=== PATIENT | male | born 1955 | race Caucasian/White ===

== ENCOUNTER 2019-02-05 15:07 | Emergency (ER) | payer OTHER, SELFPAY ==
[2019-02-05 15:16] VITALS: BP 154/89; PULSE 86; RESP 20; O2SAT 99
--- NOTE | 2019-02-05 15:22 | DI.RAD.S_ITS ---
PROCEDURE: XR CHEST 1V INDICATIONS: syncope TECHNIQUE: One view of the chest was acquired. COMPARISON: None. FINDINGS: Surgical changes and devices: None. Lungs and pleura: Lungs are clear. No pleural effusions or pneumothorax. Mediastinum: Mediastinal contours appear normal. Heart size is normal. Bones and chest wall: No suspicious bony lesions. Overlying soft tissues appear unremarkable. IMPRESSION: No acute cardiopulmonary disease process. Dictated by: Kizzy Schroeder MD, PhD on 02/05/2019 at 16:00 Approved by: Kizzy Schroeder MD, PhD on 02/05/2019 at 16:00
[2019-02-05 15:32] LABS: Add Manual Diff / Slide Review NO; Basophils Absolute Auto 0 /uL (0-100); Basophils Percent Auto 0.3 % (0-2); Eosinophils Absolute Auto 0 /uL (0-450); Eosinophils Percent Auto 0.2 % (2-4); Hematocrit 42.7 % (41-53); Hemoglobin 14.5 g/dL (13.5-17.5); Lymphocytes Absolute Auto 1500 /uL (1100-4500); Lymphocytes Percent Auto 23.8 % (25-40); Mean Corpuscular HGB Conc 34.1 % (30-36); Mean Corpuscular Hemoglobin 32.2 PG (26-34); Mean Corpuscular Volume 94.6 fL (80-100); Monocytes Absolute Auto 800 /uL (0-900); Monocytes Percent Auto 12.7 % (3-14); Neutrophils Absolute Auto 4000 /uL (1500-7000); Platelet Count 174 X10^3/uL (150-400); Red Blood Cell Count 4.51 X10^6/uL (4.5-5.9); Red Cell Distribution Width 14.1 % (11.6-14.8); White Blood Cell Count 6.4 X10^3/uL (4.5-11.0)
[2019-02-05 15:39] VITALS: BP 136/83; PULSE 84; RESP 13; O2SAT 99
--- NOTE | 2019-02-05 15:39 | ED_ITS ---
HPI - Syncope <HAO Tim - Last Filed: 02/05/19 18:31> General Chief Complaint: Syncope Stated Complaint: check to see if he had a heart attack Time Seen by Provider: 02/05/19 15:10 Source: patient and family Mode of arrival: Ambulatory Limitations: no limitations History of Present Illness HPI narrative: The patient is a 63-year-old male nonsmoker who presents with his for chief complaint of syncope 15 hours ago. He states he was in bed sleeping, got up to use the bathroom, and then got very pale sweaty and weak after. He states he lowered himself to the floor, does not think he passed out. He denies hitting his head, any neck or back pain. He denies any chest pain shortness of breath. He states that he has felt like he has had the flu, with muscle aches chills low-grade fevers and congestion. He does have a cough. He denies any shortness of breath. 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 He denies any abdominal pain. He denies any head pain or neck pain. Related Data Home Medications Medication Instructions Recorded Confirmed valsartan 40 mg PO DAILY 02/05/19 02/05/19 Allergies Allergy/AdvReac Type Severity Reaction Status Date / Time No Known Drug Allergies Allergy Verified 02/05/19 15:28 Review of Systems <HAO Tim - Last Filed: 02/05/19 18:31> Review of Systems Narrative: GENERAL: See HPI HEENT: Denies sinus pain, ear pain, sore throat, difficulty swallowing, dizziness. RESPIRATORY: Denies dyspnea, cough, wheezing, hemoptysis, sputum. CARDIOVASCULAR: See HPI GASTROINTESTINAL: See HPI : Denies dysuria, frequency, incontinence, hematuria, urinary retention. MUSCULOSKELETAL: denies weakness, joint pain, or bony pain SKIN: Denies rash, skin lesions, or other NEUROLOGIC: Denies weakness, headache, numbness, change in speech, confusion, seizures, incoordination. PSYCHIATRIC: No concerning psychosocial issues. 12 point review of systems is negative except for those stated above Patient History <JESUS Tim - Last Filed: 02/05/19 18:31> Medical History Hypertension (Acute) Exam <JESUS Tim - Last Filed: 02/05/19 18:31> Narrative Exam Narrative: GENERAL: This is a well-nourished, well-developed patient, in no acute distress HEAD: Atraumatic. Normocephalic. No temporal or scalp tenderness. EYES: Pupils equal round and reactive. Extraocular motions intact. No scleral icterus. No injection or drainage. ENT: Nose without bleeding, purulent drainage or septal hematoma. Throat without erythema, tonsillar hypertrophy or exudate. Uvula midline. Airway patent. NECK: Trachea midline. No JVD or lymphadenopathy. Supple, nontender, no meningeal signs. CARDIOVASCULAR: Regular rate and rhythm RESPIRATORY: Clear to auscultation. Breath sounds equal bilaterally. No wheezes, rales, or rhonchi. Occasional cough. No increased respiratory effort. No accessory muscle use. GASTROINTESTINAL: Abdomen soft, non-tender, nondistended. No hepato- splenomegaly, or palpable masses. No guarding. Active bowel sounds all quadrants EXTREMITIES: No clubbing, cyanosis, or edema. No joint tenderness, effusion, or edema noted. BACK: Nontender without deformity or crepitance. No flank tenderness. NEURO: AOx3. Interactive. Age appropriate. No gross cranial nerve deficit. Clear speech. SKIN: No rash or erythema visible skin Initial Vital Signs Initial Vital Signs: Vital Signs Pulse Rate 86 02/05/19 15:16 Respiratory Rate 20 02/05/19 15:16 Blood Pressure 154/89 H 02/05/19 15:16 Pulse Oximetry 99 02/05/19 15:16 <Yenny Spicer DO - Last Filed: 02/06/19 07:26> Initial Vital Signs Initial Vital Signs: Vital Signs Pulse Rate 86 02/05/19 15:16 Respiratory Rate 20 02/05/19 15:16 Blood Pressure 154/89 H 02/05/19 15:16 Pulse Oximetry 99 02/05/19 15:16 Scores <JESUS Tim - Last Filed: 02/05/19 18:31> GCS Bradford coma scale eye opening: Spontaneous Bradford coma scale verbal response: Orientated Carline coma scale motor response: Obey commands Carline coma scale total score: 15 Nexus Score for C-Spine Focal Neurologic deficit present: No Midline spinal tenderness present: No Altered level of conciousness present: No Intoxication present: No Distracting Injury Present: No Nexus Criteria for C-spine: 0 Course <HAO TimBC - Last Filed: 02/05/19 18:31> Orders Ordered: Discontinued Medications Sodium Chloride (Normal Saline 0.9%) 1,000 mls @ 1,000 mls/hr IV BOLUS ONE Stop: 02/05/19 16:36 Last Infusion: 02/05/19 16:41 Dose: 0 mls/hr Documented by: Admin: 02/05/19 15:45 Dose: 1,000 mls/hr Documented by: KEANU Sodium Chloride (Normal Saline 0.9%) 1,000 mls @ 1,000 mls/hr IV BOLUS ONE Stop: 02/05/19 17:18 Last Infusion: 02/05/19 17:47 Dose: 0 mls/hr Documented by: Admin: 02/05/19 16:41 Dose: 1,000 mls/hr Documented by: KEANU Vital Signs Vital signs: Vital Signs - 8 hr 02/05/19 15:16 02/05/19 15:39 02/05/19 16:15 Temperature Pulse Rate 86 84 87 Pulse Rate [Orthostatic Lying] Pulse Rate [Orthostatic Sitting] Pulse Rate [Orthostatic Standing] Respiratory Rate 20 13 20 Blood Pressure 154/89 H Blood Pressure [Orthostatic Lying] Blood Pressure [Orthostatic Sitting] Blood Pressure [Orthostatic Standing] Blood Pressure [Right Arm] 136/83 113/79 Pulse Oximetry 99 99 98 02/05/19 17:08 02/05/19 17:51 Temperature 98.5 F Pulse Rate 78 Pulse Rate [Orthostatic Lying] 75 Pulse Rate [Orthostatic Sitting] 79 Pulse Rate [Orthostatic Standing] 88 Respiratory Rate 18 Blood Pressure Blood Pressure [Orthostatic Lying] 125/68 Blood Pressure [Orthostatic Sitting] 143/78 H Blood Pressure [Orthostatic Standing] 127/78 Blood Pressure [Right Arm] Pulse Oximetry 98 <Yenny Spicer DO - Last Filed: 02/06/19 07:26> Orders Ordered: Discontinued Medications Sodium Chloride (Normal Saline 0.9%) 1,000 mls @ 1,000 mls/hr IV BOLUS ONE Stop: 02/05/19 16:36 Last Infusion: 02/05/19 16:41 Dose: 0 mls/hr Documented by: Admin: 02/05/19 15:45 Dose: 1,000 mls/hr Documented by: KEANU Sodium Chloride (Normal Saline 0.9%) 1,000 mls @ 1,000 mls/hr IV BOLUS ONE Stop: 02/05/19 17:18 Last Infusion: 02/05/19 17:47 Dose: 0 mls/hr Documented by: Admin: 02/05/19 16:41 Dose: 1,000 mls/hr Documented by: KEANU Vital Signs Vital signs: Vital Signs - 8 hr 02/05/19 15:16 02/05/19 15:39 02/05/19 16:15 Temperature Pulse Rate 86 84 87 Pulse Rate [Orthostatic Lying] Pulse Rate [Orthostatic Sitting] Pulse Rate [Orthostatic Standing] Respiratory Rate 20 13 20 Blood Pressure 154/89 H Blood Pressure [Orthostatic Lying] Blood Pressure [Orthostatic Sitting] Blood Pressure [Orthostatic Standing] Blood Pressure [Right Arm] 136/83 113/79 Pulse Oximetry 99 99 98 02/05/19 17:08 02/05/19 17:51 Temperature 98.5 F Pulse Rate 78 Pulse Rate [Orthostatic Lying] 75 Pulse Rate [Orthostatic Sitting] 79 Pulse Rate [Orthostatic Standing] 88 Respiratory Rate 18 Blood Pressure Blood Pressure [Orthostatic Lying] 125/68 Blood Pressure [Orthostatic Sitting] 143/78 H Blood Pressure [Orthostatic Standing] 127/78 Blood Pressure [Right Arm] Pulse Oximetry 98 MDM - Syncope <JESUS Tim - Last Filed: 02/05/19 18:31> Lab Data Result diagrams: 02/05/19 15:21 02/05/19 15:21 Labs: Lab Results 02/05/19 02/05/19 02/05/19 Range/Units 15:21 15:21 15:21 WBC 6.4 (4.5-11.0) X10^3/uL RBC 4.51 (4.5-5.9) X10^6/uL Hgb 14.5 (13.5-17.5) g/dL Hct 42.7 (41-53) % MCV 94.6 (80-100) fL MCH 32.2 (26-34) PG MCHC 34.1 (30-36) % RDW 14.1 (11.6-14.8) % Plt Count 174 (150-400) X10^3/uL Neut % (Auto) 63.0 (50-75) % Lymph % (Auto) 23.8 L (25-40) % [place] % (Auto) 12.7 (3-14) % Eos % (Auto) 0.2 L (2-4) % Baso % (Auto) 0.3 (0-2) % Neut # (Auto) 4000 (1233-4660) /uL Lymph # (Auto) 1500 (3071-8919) /uL [place] # (Auto) 800 (0-900) /uL Eos # (Auto) 0 (0-450) /uL Baso # (Auto) 0 (0-100) /uL Sodium 137 (137-145) mmol/L Potassium 3.8 (3.4-5.1) mmol/L Chloride 98 (98-107) mmol/L Carbon Dioxide 27 (22-32) mmol/L BUN 24 H (9-20) mg/dL Creatinine 1.40 H (0.66-1.25) mg/dL Estimated GFR 51.5 L (>60) mL/min BUN/Creatinine Ratio 17.1 (6-22) Glucose 97 (80-110) mg/dL Calcium 8.7 (8.4-10.2) mg/dL Magnesium 2.1 (1.6-2.3) mg/dL Total Bilirubin 0.5 (0.2-1.3) mg/dL AST 32 (17-59) IU/L ALT 15 (<50) IU/L Alkaline Phosphatase 55 (38-126) U/L Total Creatine Kinase 135 (55-170) U/L CK-MB (CK-2) 0.31 (<2.37) ng/mL CK-MB (CK-2) Rel Index 0.2 L (1.5-5.0) % Troponin I Cancelled < 0.012 Total Protein 7.8 (6.3-8.2) g/dL Albumin 4.4 (3.5-5.0) g/dL Globulin 3.4 (1.7-4.1) g/dL Albumin/Globulin Ratio 1.3 (1.0-2.8) Influenza A (RT-PCR) (NEGATIVE) Influenza B (RT-PCR) (NEGATIVE) 02/05/19 Range/Units 15:48 WBC (4.5-11.0) X10^3/uL RBC (4.5-5.9) X10^6/uL Hgb (13.5-17.5) g/dL Hct (41-53) % MCV (80-100) fL MCH (26-34) PG MCHC (30-36) % RDW (11.6-14.8) % Plt Count (150-400) X10^3/uL Neut % (Auto) (50-75) % Lymph % (Auto) (25-40) % [place] % (Auto) (3-14) % Eos % (Auto) (2-4) % Baso % (Auto) (0-2) % Neut # (Auto) (8107-5527) /uL Lymph # (Auto) (8165-7361) /uL [place] # (Auto) (0-900) /uL Eos # (Auto) (0-450) /uL Baso # (Auto) (0-100) /uL Sodium (137-145) mmol/L Potassium (3.4-5.1) mmol/L Chloride (98-107) mmol/L Carbon Dioxide (22-32) mmol/L BUN (9-20) mg/dL Creatinine (0.66-1.25) mg/dL Estimated GFR (>60) mL/min BUN/Creatinine Ratio (6-22) Glucose (80-110) mg/dL Calcium (8.4-10.2) mg/dL Magnesium (1.6-2.3) mg/dL Total Bilirubin (0.2-1.3) mg/dL AST (17-59) IU/L ALT (<50) IU/L Alkaline Phosphatase (38-126) U/L Total Creatine Kinase (55-170) U/L CK-MB (CK-2) (<2.37) ng/mL CK-MB (CK-2) Rel Index (1.5-5.0) % Troponin I Total Protein (6.3-8.2) g/dL Albumin (3.5-5.0) g/dL Globulin (1.7-4.1) g/dL Albumin/Globulin Ratio (1.0-2.8) Influenza A (RT-PCR) Flu a negative (NEGATIVE) Influenza B (RT-PCR) Flu b positive H (NEGATIVE) Urine Dip Bedside Urine Glucose Negative Bedside Urine Bilirubin - Negative Bedside Urine Ketone - Negative Urine Specific [place] 1.015 Bedside Urine Occult Blood - Negative Bedside Urine pH 6.0 Bedside Urine Protein - Negative Bedside Urine Urobilinogen - Negative Bedside Urine Nitrite - Negative Bedside Urine Leukocytes - Negative Esterase Imaging Data Chest x-ray: Radiologist's Impression: [address] [id number] XRay Report Signed Patient: Cornelio Vazquez HMR#: [id number] : 8Acct:[id number] Age/Sex: 63 / MDate of Service: 02/05/19 Loc: ED Accession Number: [id number] Procedure: XR chest 1V Ordering Provider: Terri Gallegos- PROCEDURE: XR CHEST 1V INDICATIONS: syncope TECHNIQUE: One view of the chest was acquired. COMPARISON: None. FINDINGS: Surgical changes and devices: None. Lungs and pleura: Lungs are clear. No pleural effusions or pneumothorax. Mediastinum: Mediastinal contours appear normal. Heart size is normal. Bones and chest wall: No suspicious bony lesions. Overlying soft tissues appear unremarkable. IMPRESSION: No acute cardiopulmonary disease process. Dictated by: Kizzy Schroeder MD, PhD on 02/05/2019 at 16:00 Approved by: Kizzy Schroeder MD, PhD on 02/05/2019 at 16:00 ECG Data Attestation: I personally reviewed and interpreted this ECG as follows: Interpretation: Sinus rhythm. Ventricular 88. P.r. 165. QRS 94. No ectopy noted. viewed by Dr Spicer. [facility] Narrative Medical decision making narrative: The patient is a 63-year-old male who presents with a chief complaint of near-syncope 15 hours ago. He denies any chest pain or shortness of breath, but complains of recent cough cold congestion symptoms. The patient has normal EKG, negative troponin helping to rule out an acute cardiac event. He does test positive for influenza B, which could have led to an episode of near-syncope and weakness. He appears dehydrated on exam, states given 2 L of IV fluids and orthostatics were taken. I discussed at length that he is still contagious with flu, encouraged rest, pushing fluids, follow-up with primary care provider in the next few days. Discussed at length coming back to the emergency department for any acute concerns such as repeat syncope, chest pain shortness of breath. Encourage that the patient come back to the emergency department immediately only for an episode of near-syncope or syncope rather than waiting until the next day. Patient have no questions or concerns upon discharge and state understanding of return precautions as well as follow-up care. <Yenny Spicer, DO - Last Filed: 02/06/19 07:26> Lab Data Labs: Lab Results 02/05/19 02/05/19 02/05/19 Range/Units 15:21 15:21 15:21 WBC 6.4 (4.5-11.0) X10^3/uL RBC 4.51 (4.5-5.9) X10^6/uL Hgb 14.5 (13.5-17.5) g/dL Hct 42.7 (41-53) % MCV 94.6 (80-100) fL MCH 32.2 (26-34) PG MCHC 34.1 (30-36) % RDW 14.1 (11.6-14.8) % Plt Count 174 (150-400) X10^3/uL Neut % (Auto) 63.0 (50-75) % Lymph % (Auto) 23.8 L (25-40) % [place] % (Auto) 12.7 (3-14) % Eos % (Auto) 0.2 L (2-4) % Baso % (Auto) 0.3 (0-2) % Neut # (Auto) 4000 (4171-9943) /uL Lymph # (Auto) 1500 (3793-5281) /uL [place] # (Auto) 800 (0-900) /uL Eos # (Auto) 0 (0-450) /uL Baso # (Auto) 0 (0-100) /uL Sodium 137 (137-145) mmol/L Potassium 3.8 (3.4-5.1) mmol/L Chloride 98 (98-107) mmol/L Carbon Dioxide 27 (22-32) mmol/L BUN 24 H (9-20) mg/dL Creatinine 1.40 H (0.66-1.25) mg/dL Estimated GFR 51.5 L (>60) mL/min BUN/Creatinine Ratio 17.1 (6-22) Glucose 97 (80-110) mg/dL Calcium 8.7 (8.4-10.2) mg/dL Magnesium 2.1 (1.6-2.3) mg/dL Total Bilirubin 0.5 (0.2-1.3) mg/dL AST 32 (17-59) IU/L ALT 15 (<50) IU/L Alkaline Phosphatase 55 (38-126) U/L Total Creatine Kinase 135 (55-170) U/L CK-MB (CK-2) 0.31 (<2.37) ng/mL CK-MB (CK-2) Rel Index 0.2 L (1.5-5.0) % Troponin I Cancelled < 0.012 Total Protein 7.8 (6.3-8.2) g/dL Albumin 4.4 (3.5-5.0) g/dL Globulin 3.4 (1.7-4.1) g/dL Albumin/Globulin Ratio 1.3 (1.0-2.8) Influenza A (RT-PCR) (NEGATIVE) Influenza B (RT-PCR) (NEGATIVE) 02/05/19 Range/Units 15:48 WBC (4.5-11.0) X10^3/uL RBC (4.5-5.9) X10^6/uL Hgb (13.5-17.5) g/dL Hct (41-53) % MCV (80-100) fL MCH (26-34) PG MCHC (30-36) % RDW (11.6-14.8) % Plt Count (150-400) X10^3/uL Neut % (Auto) (50-75) % Lymph % (Auto) (25-40) % [place] % (Auto) (3-14) % Eos % (Auto) (2-4) % Baso % (Auto) (0-2) % Neut # (Auto) (6958-5646) /uL Lymph # (Auto) (7255-9985) /uL [place] # (Auto) (0-900) /uL Eos # (Auto) (0-450) /uL Baso # (Auto) (0-100) /uL Sodium (137-145) mmol/L Potassium (3.4-5.1) mmol/L Chloride (98-107) mmol/L Carbon Dioxide (22-32) mmol/L BUN (9-20) mg/dL Creatinine (0.66-1.25) mg/dL Estimated GFR (>60) mL/min BUN/Creatinine Ratio (6-22) Glucose (80-110) mg/dL Calcium (8.4-10.2) mg/dL Magnesium (1.6-2.3) mg/dL Total Bilirubin (0.2-1.3) mg/dL AST (17-59) IU/L ALT (<50) IU/L Alkaline Phosphatase (38-126) U/L Total Creatine Kinase (55-170) U/L CK-MB (CK-2) (<2.37) ng/mL CK-MB (CK-2) Rel Index (1.5-5.0) % Troponin I Total Protein (6.3-8.2) g/dL Albumin (3.5-5.0) g/dL Globulin (1.7-4.1) g/dL Albumin/Globulin Ratio (1.0-2.8) Influenza A (RT-PCR) Flu a negative (NEGATIVE) Influenza B (RT-PCR) Flu b positive H (NEGATIVE) Urine Dip Bedside Urine Glucose Negative Bedside Urine Bilirubin - Negative Bedside Urine Ketone - Negative Urine Specific [place] 1.015 Bedside Urine Occult Blood - Negative Bedside Urine pH 6.0 Bedside Urine Protein - Negative Bedside Urine Urobilinogen - Negative Bedside Urine Nitrite - Negative Bedside Urine Leukocytes - Negative Esterase Discharge Plan Departure Patient Disposition: Home Clinical Impression: Weakness, Dehydration, Near syncope, Influenza B Discharge Date/Time: 02/05/19 18:30 Instructions: DI for Dehydration -- Adult, DI for Influenza -- Adult Activity Restrictions/Additional Instructions: Today you tested positive for influenza B. This likely contributed to your episode of weakness and near passing out yesterday Please rest and push fluids. Please come back to the emergency department for any acute concerns such as concern of heart attack or stroke If you have another episode of near passing out, passing out etcetera please come back to the emergency department immediately or rather than waiting for the next day. Prescriptions: No Action valsartan 40 mg tablet 40 mg PO DAILY RF: 0 Referrals: [facility] [Outside]
[2019-02-05 15:42] LABS: Alanine Aminotransferase 15 IU/L (<50); Albumin 4.4 g/dL (3.5-5.0); Albumin Globulin Ratio 1.3 (1.0-2.8); Alkaline Phosphatase 55 U/L (38-126); Aspartate Aminotransferase 32 IU/L (17-59); BUN Creatinine Ratio 17.1 (6-22); Bilirubin Total 0.5 mg/dL (0.2-1.3); Blood Urea Nitrogen 24 mg/dL (9-20); Calcium 8.7 mg/dL (8.4-10.2); Carbon Dioxide 27 mmol/L (22-32); Chloride 98 mmol/L (98-107); Creatine Kinase 135 U/L (55-170); Estimated Glomerular Filt Rate 51.5 mL/min (>60); Globulin 3.4 g/dL (1.7-4.1); Glucose 97 mg/dL (80-110); HEMOLYSIS 43 (0-50); Magnesium 2.1 mg/dL (1.6-2.3); Potassium 3.8 mmol/L (3.4-5.1); Sodium 137 mmol/L (137-145); Total Protein 7.8 g/dL (6.3-8.2)
[2019-02-05] MEDS: SODIUM CHLORIDE 0.9% 1,000 ML 1000 ML IV ×2 (15:45→16:41)
[2019-02-05 15:54] LABS: Troponin I < 0.012 ng/mL (0.01-0.034)
[2019-02-05 15:58] LABS: CKMB % Relative Index 0.2 % (1.5-5.0); Creatine Kinase MB 0.31 ng/mL (<2.37)
[2019-02-05 16:15] VITALS: BP 113/79; PULSE 87; RESP 20; O2SAT 98
[2019-02-05 16:23] LABS: Influenza A - CEPHEID Flu A NEGATIVE (NEGATIVE); Influenza B - CEPHEID Flu B POSITIVE (NEGATIVE)
[2019-02-05 17:08] VITALS: PULSE 78; RESP 18; TEMP 36.9; O2SAT 98
[2019-02-05 17:51] VITALS: BP 125/68; BP 127/78; BP 143/78; PULSE 75; PULSE 79; PULSE 88
[2019-02-05 18:28] VITALS: BP 132/72; PULSE 78; RESP 14; O2SAT 98
== END 2019-02-05 18:30 | disposition home or self-care (01) ==
PROVIDERS: Emergency Medicine; Emergency Provider Nurse Practitioner Family
DX: J10.1 Influenza due to other identified influenza virus with other respiratory manifestations (principal); R53.1 Weakness; E86.0 Dehydration; R55 Syncope and collapse
CPT/HCPCS: 36415; 71045; 80053; 81003; 82550; 82553; 83735; 84484; 85025; 87502; 93005; 96360; 96361; 99284; 99285

== ENCOUNTER 2020-12-20 01:22 | Emergency (ER) | payer OTHER, SELFPAY ==
[2020-12-20 01:33] VITALS: BP 158/89; PULSE 84; RESP 12; TEMP 36.6; O2SAT 97; BMI 26.6
--- NOTE | 2020-12-20 01:35 | DI.RAD.S_ITS ---
PROCEDURE: XR CHEST 1V INDICATIONS: chest pain TECHNIQUE: One view of the chest was acquired. COMPARISON: [facility], CR, XR CHEST 1V, 02/05/2019, 15:36. FINDINGS: Surgical changes and devices: None. Lungs and pleura: Lungs are clear. No pleural effusions or pneumothorax. Mediastinum: Mediastinal contours appear normal. Heart size is normal. Bones and chest wall: No suspicious bony lesions. Overlying soft tissues appear unremarkable. IMPRESSION: No evidence acute pulmonary process. Comment: Final report is concordant with preliminary interpretation provided by [facility]. Dictated by: Alen Ramírez M.D. on 12/20/2020 at 7:39 Approved by: Alen Ramírez M.D. on 12/20/2020 at 7:40
[2020-12-20 01:36] VITALS: PULSE 82; RESP 18; O2SAT 98
--- NOTE | 2020-12-20 01:48 | ED.ARRPALP ---
HPI - Arrhythmia/Palpitations General Chief Complaint: Arrhythmia/Palpitations Stated Complaint: heart racing x1 hour Time Seen by Provider: 12/20/20 01:39 Source: patient Mode of arrival: Ambulatory History of Present Illness HPI narrative: 65-year-old gentleman with history of hypertension was awoken from sleep with concerns that his heart was racing. His pulse ox indicated that he was in the low 80s and when he got up went to the bathroom got back to bed he was almost 100. He describes his significantly abnormal for himself. He states his usual heart rate is 72 and feels that at rest current rate of 77-80 is abnormal. Describes occasionally not being able to get a complete breath but no specific exertional dyspnea or orthopnea. He has recently started a mindful breathing program and with that he has found that he is far more aware of his breathing otherwise in a way that actually is not helpful. He describes no recent fevers, cough, chills, abdominal pain, vomiting, diarrhea. No lower extremity edema. Notes no strenuous exercise today and no activity outside of his usual. He describes 15 drinks a week and knows that he should cut down on that but has not been able to do so. He states he had 4 alcoholic drinks today between 430 and 8pm . Related Data Home Medications Medication Instructions Recorded Confirmed valsartan 40 mg tablet 40 mg PO DAILY 02/05/19 02/05/19 Allergies Allergy/AdvReac Type Severity Reaction Status Date / Time No Known Drug Allergies Allergy Verified 12/20/20 01:35 Review of Systems Review of Systems Narrative: Remainder of complete review of systems is otherwise unremarkable except for that included in the HPI. Patient History Medical History (Updated 12/20/20 @ 02:45 by Bessie Kendall MD) Hypertension Social History Smoking Status: Never smoker Smoking Status: Never smoker alcohol intake frequency: 3 or more drinks per day Substance Use Type: does not use Exam Narrative Exam Narrative: General: Healthy appearing, in no acute distress. Able to give a complete and coherent history. Well-nourished well-developed HEENT: Moist mucous membranes, normal sclera with reactive pupils, Neck: No JVD, supple Respiratory: Lungs are clear to auscultation, no wheezing no rales no rhonchi. Full and symmetrical air movement Cardiac: Regular rate and rhythm no murmurs no bruits Abdomen: Soft, nontender, good bowel tones, no flank pain Skin: Warm and dry, no rashes Neurologic: Grossly neurologically intact with no obvious asymmetries or abnormalities Extremities: No trauma, well perfused Psych: Cooperative, appropriate insight and affect Initial Vital Signs Initial Vital Signs: Vital Signs Temperature 97.8 F 12/20/20 01:33 Pulse Rate 84 12/20/20 01:33 Respiratory Rate 12 12/20/20 01:33 Blood Pressure 158/89 H 12/20/20 01:33 Pulse Oximetry 97 12/20/20 01:33 Course Orders Ordered: ED Orders 12/20/20 01:35 XR chest 1V Stat EKG-12 Lead Stat 12/20/20 01:50 Complete Blood Count AUTO DIFF Stat Comprehensive Metabolic Panel Stat Lipase Stat Troponin & CK Cardiac Panel Stat Discontinued Medications Sodium Chloride (Normal Saline 0.9%) 1,000 mls @ 1,000 mls/hr IV BOLUS ONE Stop: 12/20/20 03:00 Last Infusion: 12/20/20 03:05 Dose: 0 mls/hr Documented by: Admin: 12/20/20 02:03 Dose: 1,000 mls/hr Documented by: MEGAN Vital Signs Vital signs: Vital Signs - 8 hr 12/20/20 01:33 12/20/20 01:36 12/20/20 02:00 Temperature 97.8 F Pulse Rate 84 82 82 Respiratory Rate 12 18 20 Blood Pressure 158/89 H Pulse Oximetry 97 98 97 12/20/20 02:29 12/20/20 02:30 12/20/20 03:00 Temperature Pulse Rate 75 75 67 Respiratory Rate 25 H 13 11 L Blood Pressure 127/80 116/78 120/70 Pulse Oximetry 97 97 96 MDM - Arrhythmia/Palpitations Lab Data Result diagrams: 12/20/20 01:50 12/20/20 01:50 Labs: Lab Results 12/20/20 12/20/20 Range/Units 01:50 01:50 WBC 7.8 (4.5-11.0) X10^3/uL RBC 4.20 L (4.5-5.9) X10^6/uL Hgb 13.2 L (13.5-17.5) g/dL Hct 39.5 L (41-53) % MCV 93.9 (80-100) fL MCH 31.5 (26-34) PG MCHC 33.5 (30-36) % RDW 14.0 (11.6-14.8) % Plt Count 265 (150-400) X10^3/uL Neut % (Auto) 56.9 (50-75) % Lymph % (Auto) 30.0 (25-40) % [place] % (Auto) 10.5 (3-14) % Eos % (Auto) 1.8 L (2-4) % Baso % (Auto) 0.8 (0-2) % Neut # (Auto) 4400 (1904-8982) /uL Lymph # (Auto) 2300 (0374-3402) /uL [place] # (Auto) 800 (0-900) /uL Eos # (Auto) 100 (0-450) /uL Baso # (Auto) 100 (0-100) /uL Sodium 139 (137-145) mmol/L Potassium 3.6 (3.4-5.1) mmol/L Chloride 108 H (98-107) mmol/L Carbon Dioxide 24 (22-32) mmol/L BUN 22 H (9-20) mg/dL Creatinine 1.50 H (0.66-1.25) mg/dL Estimated GFR 47.3 L (>60) mL/min BUN/Creatinine Ratio 14.7 (6-22) Glucose 109 (80-110) mg/dL Calcium 8.8 (8.4-10.2) mg/dL Total Bilirubin 0.4 (0.2-1.3) mg/dL AST 30 (17-59) IU/L ALT 19 (<50) IU/L Alkaline Phosphatase 66 (38-126) U/L Total Creatine Kinase 154 (55-170) U/L CK-MB (CK-2) 0.61 (<2.37) ng/mL CK-MB (CK-2) Rel Index 0.4 L (1.5-5.0) % Troponin I < 0.012 (0.01-0.034) ng/mL Total Protein 7.5 (6.3-8.2) g/dL Albumin 4.4 (3.5-5.0) g/dL Globulin 3.1 (1.7-4.1) g/dL Albumin/Globulin Ratio 1.4 (1.0-2.8) Lipase 106 (23-300) U/L ECG Data Interpretation: Sinus rhythm at a rate of 83 Normal intervals, normal axis No acute ischemic changes MDM Narrative Medical decision making narrative: 65-year-old gentleman woke up in the middle night concerned that he was tachycardic with heart rate in the 80s up to 100 with walking to the bathroom. Lab work is entirely reassuring. Heart rate has been in the mid 70s while he was chatting and dropping down into the upper 60s while he is at rest. EKG is unremarkable. No evidence of pathologic tachycardia. He may have been a bit dehydrated and had a slight apneic episode or bad dream that awoke him from sleep this evening. At this point I see no evidence of pathology reassurance is given and he is safe for home discharge Discharge Plan Departure Patient Disposition: Home Clinical Impression: Palpitations Instructions: DI for Arrhythmias Activity Restrictions/Additional Instructions: Thank you for coming in today Your workup was entirely unremarkable. The initial rhythm on arrival in the emergency department was sinus rhythm and he will have remained in sinus rhythm throughout your ER stay. There is no evidence of heart attack, infection, significant pulmonary abnormalities or other explanation that would require hospitalization. It is possible that you had either an apneic episode or a bad dream that caused your heart rate to be higher when you awoke in the middle of the night tonight. I would recommend that you discuss this with your primary care doctor. If you continue to have episodes like this sleep study and or an outpatient cardiac monitoring device may well be appropriate. I wish you the best Prescriptions: No Action valsartan 40 mg tablet 40 mg PO DAILY RF: 0
--- NOTE | 2020-12-20 01:58 | PC.NURSE ---
Patient reports waking from sleep feeling hot and sensation of heart racing. Patient checked heart rate on pulse ox found to be in 80's, after walking to restroom heart rate max 102. Patient denies chest pain, states he has had a few episodes similar to this.
[2020-12-20 01:59] LABS: Add Manual Diff / Slide Review NO; Basophils Absolute Auto 100 /uL (0-100); Basophils Percent Auto 0.8 % (0-2); Eosinophils Absolute Auto 100 /uL (0-450); Eosinophils Percent Auto 1.8 % (2-4); Hematocrit 39.5 % (41-53); Hemoglobin 13.2 g/dL (13.5-17.5); Lymphocytes Absolute Auto 2300 /uL (1100-4500); Mean Corpuscular HGB Conc 33.5 % (30-36); Mean Corpuscular Hemoglobin 31.5 PG (26-34); Mean Corpuscular Volume 93.9 fL (80-100); Monocytes Absolute Auto 800 /uL (0-900); Monocytes Percent Auto 10.5 % (3-14); Neutrophils Absolute Auto 4400 /uL (1500-7000); Neutrophils Percent Auto 56.9 % (50-75); Platelet Count 265 X10^3/uL (150-400); White Blood Cell Count 7.8 X10^3/uL (4.5-11.0)
[2020-12-20 02:00] VITALS: PULSE 82; RESP 20; O2SAT 97
[2020-12-20] MEDS: SODIUM CHLORIDE 0.9% 1,000 ML 1000 ML IV (02:03)
[2020-12-20 02:07] LABS: Alanine Aminotransferase 19 IU/L (<50); Albumin 4.4 g/dL (3.5-5.0); Albumin Globulin Ratio 1.4 (1.0-2.8); Alkaline Phosphatase 66 U/L (38-126); Aspartate Aminotransferase 30 IU/L (17-59); BUN Creatinine Ratio 14.7 (6-22); Bilirubin Total 0.4 mg/dL (0.2-1.3); Blood Urea Nitrogen 22 mg/dL (9-20); Calcium 8.8 mg/dL (8.4-10.2); Carbon Dioxide 24 mmol/L (22-32); Chloride 108 mmol/L (98-107); Creatine Kinase 154 U/L (55-170); Estimated Glomerular Filt Rate 47.3 mL/min (>60); Globulin 3.1 g/dL (1.7-4.1); Glucose 109 mg/dL (80-110); HEMOLYSIS < 15 (0-50); Lipase 106 U/L (23-300); Potassium 3.6 mmol/L (3.4-5.1); Sodium 139 mmol/L (137-145); Total Protein 7.5 g/dL (6.3-8.2)
[2020-12-20 02:26] LABS: CKMB % Relative Index 0.4 % (1.5-5.0); Creatine Kinase MB 0.61 ng/mL (<2.37); Troponin I < 0.012 ng/mL (0.01-0.034)
[2020-12-20 02:29] VITALS: BP 127/80; PULSE 75; RESP 25; O2SAT 97
[2020-12-20 02:30] VITALS: BP 116/78; PULSE 75; RESP 13; O2SAT 97
[2020-12-20 03:00] VITALS: BP 120/70; PULSE 67; RESP 11; O2SAT 96
== END 2020-12-20 03:11 | disposition home or self-care (01) ==
PROVIDERS: Emergency Provider Emergency Medicine
DX: R00.2 Palpitations (principal); E86.0 Dehydration
CPT/HCPCS: 36415; 71045; 80053; 82550; 82553; 83690; 84484; 85025; 93005; 93010; 96360; 99284

== ENCOUNTER 2022-07-12 14:24 | Emergency (ER) | payer OTHER, SELFPAY ==
[2022-07-12 14:36] VITALS: BP 137/92; PULSE 88; RESP 18; TEMP 37.2; O2SAT 98; BMI 25.2
--- NOTE | 2022-07-12 14:48 | DI.CT.S_ITS ---
PROCEDURE: CT CERVICAL SPINE WO CON INDICATIONS: 40-50lb object fell on head TECHNIQUE: Noncontrast 3 mm thick sections acquired from the skull base to the T4 level. Sagittal and coronal reformats were then constructed. For radiation dose reduction, the following was used: automated exposure control, adjustment of mA and/or kV according to patient size. COMPARISON: None. FINDINGS: Image quality: Excellent. Bones: No fractures or dislocations degenerative change including intervertebral disc space narrowing and osteophytosis is present from C4-C6.. Visualized superior ribs are intact. Soft tissues: Prevertebral soft tissues are normal in thickness. No paravertebral hematomas. No apical pneumothoraces. IMPRESSION: No acute cervical spine injury. Degenerative change within the mid cervical spine. Dictated by: Poly Lorenzana M.D. on 07/12/2022 at 16:13 Approved by: Poly Lorenzana M.D. on 07/12/2022 at 16:14
--- NOTE | 2022-07-12 14:48 | DI.CT.S_ITS ---
PROCEDURE: CT HEAD/BRAIN WO CON INDICATIONS: 40-50lb object fell on head TECHNIQUE: Noncontrast 4.5 mm thick angled axial sections acquired from the foramen magnum to the vertex, with coronal and sagittal reformats. For radiation dose reduction, the following was used: automated exposure control, adjustment of mA and/or kV according to patient size. COMPARISON: None. FINDINGS: Image quality: Excellent. CSF spaces: Basal cisterns are patent. No extra-axial fluid collections. Ventricles are normal in size and shape. Brain: No midline shift. No intracranial masses or hemorrhage. Farley-white matter interface is normal. Punctate calcifications are present bilaterally within the basal ganglia. Skull and face: Calvarium and visualized facial bones are intact, without suspicious lesions. Sinuses: Visualized sinuses and mastoids are clear. IMPRESSION: No acute intracranial findings. Dictated by: Poly Lorenzana M.D. on 07/12/2022 at 16:10 Approved by: Poly Lorenzana M.D. on 07/12/2022 at 16:12
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
--- NOTE | 2022-07-12 15:19 | PC.NURSE ---
pt presents with a bandage on top of head, bleeding controlled, pt states he was using a post pounder when it fell onto his head. Pt looked it up and the post pounder weighs about 15 pounds. No LOC, no thinners. Bandage was not unwrapped upon assessment. Waiting for NOTEMAN to unwrap bandage. Bleeding controlled. Pt currently at CT
[2022-07-12] MEDS: TET,DIPH,PERTUSS(ACELL),VAC/PF 0.5 ML SYRINGE IM (15:31)
[2022-07-12] MEDS: LIDOCAINE 2% W/EPI INJ 20 ML INJ (15:33)
[2022-07-12 16:55] VITALS: BP 126/73; PULSE 73; RESP 18; O2SAT 96
== END 2022-07-12 16:55 | disposition home or self-care (01) ==
PROVIDERS: Emergency Provider Nurse Practitioner Critical Care Medicine
DX: S06.0X0A Concussion without loss of consciousness, initial encounter (principal); S01.01XA Laceration without foreign body of scalp, initial encounter; W22.8XXA Striking against or struck by other objects, initial encounter; Z23 Encounter for immunization
CPT/HCPCS: 12013; 70450; 72125; 90471; 99284; 90715